=== PATIENT | female | born 1995 | race Caucasian/White ===

== ENCOUNTER 2018-11-14 05:45 | Inpatient (IN) | payer OTHER ==
[2018-11-14] VITALS (60 sets, daily range): BP systolic 99–138; BP diastolic 54–80; PULSE 71–120; TEMP 97.8–987
[~2018-11-14] VITALS: Ht 160 cm; Wt 94.1 kg
--- NOTE | 2018-11-14 06:00 | NUR ---
Pt arrived on the unit ambulatory escorted by her and with complaints of SROM with clear fluid at 0400. Pt denies any contractions at this time and reports normal movement. Amnio-test positive. SVE by this RN . EFM and toco monitors applied. Vital signs WNL.
[2018-11-14] MEDS ORDERED: PRENATAL (06:12)
[2018-11-14] MEDS ORDERED: DIABETA 2.5MG2.5 MG PO (06:13)
[2018-11-14] MEDS ORDERED: NEXIUM 20MG20 MG (06:13)
--- NOTE | 2018-11-14 06:20 | NUR ---
Spoke with Dr. Tristan regarding pt's arrival. We reviewed SVE, SROM and FHR tracing. Labor admission orders received. Plan of care reviewed with pt and at the bedside.
--- NOTE | 2018-11-14 07:15 | NUR ---
0700 Report received, care assumed. Plan of care reviewed with patient and spouse. 0715 Pitocin started at 2mu per orders and protocol.
[2018-11-14 07:22] LABS: BASO # 0.1 (0.0-0.2); BASO % 0.6 % (0.0-2.0); EOS # 0.1 (0.0-0.7); GRAN # 5.4 (1.4-6.5); GRAN % 69.2 % (42.2-75.2); HEMATOCRIT 38.4 % (37.0-47.0); HEMOGLOBIN 13.1 g/dl (12.5-16.0); LYMPH # 1.6 (1.2-3.4); LYMPH % 20.7 % (20.0-51.0); MEAN CELL VOLUME 94 fl (80.0-100.0); MEAN CORPUSCULAR HEMOGLOBIN 32 pg (27.0-31.0); MEAN CORPUSCULAR HGB CONC 34 g/dl (33.0-37.0); MEAN PLATELET VOLUME 12.2 fl (7.4-10.4); MONO # 0.6 (0.1-0.6); MONO % 7.9 % (1.7-9.3); PLATELET COUNT 136 K/mm3 (130-400); RED BLOOD COUNT 4.09 M/mm3 (4.10-5.30); REDCELL DISTRIBUTION WIDTH-CV 14.5 % (11.5-14.5)
--- NOTE | 2018-11-14 08:15 | NUR ---
Dr. Andre on unit, reviews FHR tracing. To patient room, discusses plan of care with patient and spouse. No new orders.
--- NOTE | 2018-11-14 08:30 | NUR ---
Patient states that she is beginning to feel some mild contractions and would like to use the birthing ball. Patient assisted to birthing ball. FHR intermittently tracing while patient is on the ball, this nurse at bedside adjusting EFM as needed.
--- NOTE | 2018-11-14 12:30 | NUR ---
Dr. Andre on unit, reviews FHR tracing. To patient room, SVE /-[address] AROM of forebag. Dr. Andre discusses plan of care with patient and spouse. Pitocin increased to 22mu per orders.
--- NOTE | 2018-11-14 13:30 | NUR ---
Patient uncomfortable with contractions, breathing and moaning through them, requesting epidural. IVF bolus started. GENERATOR REBUILDER notified.
--- NOTE | 2018-11-14 13:55 | NUR ---
1346 FHR down to 100 bpm for 1 minute, then decreases to 60-70 bpm for 5 minutes. During this time patient turned to high left side, IVF wide open and O2 on at 10L per mask. Pitocin turned off. SVE /-2. FHR intermittenty tracing with EFM, scalp electrode placed by this nurse and then patient assisted to knee chest. 1353 FHR 110-120 bpm and gradually returns to baseline of [address] Andre called and updated on FHR deceleration and interventions.
--- NOTE | 2018-11-14 14:15 | NUR ---
1357 Patient assisted from knee chest position to sitting upright on the bed. 1358 MAAME Johnson to patient room to place epidural. 1402 FHR down to 110 bpm for 1 minute, then down to 60-70 bpm over 5 minutes. Patient remains sitting upright while epidural is being placed, IVF bolus continues and O2 remains on at 10L. 1408 Patient assisted to high right side and 0.25mg of terbulatine given per orders. 1409 FHR gradually increases to 90 bpm. Patient assisted to knee chest position. FHR gradually increases from 90 bpm to [address] Andre called and updated on deceleration and interventions. Blood pressure WNL.
--- NOTE | 2018-11-14 14:15 | NUR ---
FHR 16 bpm, moderate variability. Patient assisted from knee chest position to high right side.
--- NOTE | 2018-11-14 14:30 | NUR ---
1427 BP: 85/50. 1429 10mg of ephedrine given per orders. 1431 BP 111/54.
--- NOTE | 2018-11-14 15:48 | NUR ---
FHR down to 90 bpm over 2 minutes with a gradual return to baseline of 150 bpm. SVE 6/80/-2. Patient positioned to right side with peanut ball between legs.
--- NOTE | 2018-11-14 17:30 | NUR ---
1725 FHR down to 70 bpm for 2 minutes, SVE 8/90/0, with scalp stimulation FHR increases to 150 bpm for 50 seconds, and then decreases again to 60-70 bpm for 5 minutes. Patient turned from high right side to high left side and then to knee chest position. O2 applied at 10L per mask. 1732 FHR gradually increases to 120 bpm and reaches baseline of [address] Andre called and updated on deceleration and interventions.
--- NOTE | 2018-11-14 17:45 | NUR ---
Patient assisted from knee chest to high left side.
--- NOTE | 2018-11-14 18:15 | NUR ---
Dr. Andre on unit, reviews FHR tracing. To patient room, SVE /+1. Plan of care reviewed. Patient positioned to right side with peanut ball between legs.
--- NOTE | 2018-11-14 19:00 | NUR ---
Dr Andre continues at L&D desk.
--- NOTE | 2018-11-14 19:05 | NUR ---
SVE by Dr Andre, ant rim/?OP. Dr Andre discusses plan of care with pt: possible OP position, longer labor, longer pushing, will start low dose Pitocin. Pt verbalizes understanding and consents. Pitocin gtt restarted at 2mu/pump
--- NOTE | 2018-11-14 20:00 | NUR ---
Dr Andre continues @ L&D desk.
--- NOTE | 2018-11-14 20:15 | NUR ---
SVE by this RN, 9+ with non-reducible rim on R ant. pt turned L wedge.
--- NOTE | 2018-11-14 20:45 | NUR ---
Dr Andre into room, bedside sono confirms straight OP. SVE by Dr Andre. 2100 pushing instructions given, Dr Andre continues in room. Pt set up, prepped for delivery.
--- NOTE | 2018-11-14 21:19 | NUR ---
of Male infant by Dr. Andre.
--- NOTE | 2018-11-14 21:26 | NUR ---
placenta delivers spont and intact with 3 vessell cord. Pitocin gtt to bolus rate.
--- NOTE | 2018-11-14 21:30 | NUR ---
Perineal inspection complete, pericare performed, ice pack to perineum, bed back together.
--- NOTE | 2018-11-14 22:30 | NUR ---
IV to INT, epidural cath dc'd, up to bathroom with steady gait. Voids good amount performs own pericare. Pt puts on own clothes. Ambulates to room with steady gait.
[2018-11-15 04:45] VITALS: BP 117/66; PULSE 89; TEMP 98
[2018-11-15 06:39] LABS: HEMOGLOBIN 11.8 g/dl (12.5-16.0)
[2018-11-15 08:35] VITALS: BP 108/72; PULSE 85; TEMP 98.3
[2018-11-15 16:00] VITALS: BP 118/80; PULSE 90; TEMP 98.4
--- NOTE | 2018-11-15 18:53 | NUR ---
0700 MOTHER HAD FED BABY ONLY 5 CC AND BROUGHT BABY TO [facility] WIDE AWAKE. THIS NURSE ASKED HER TO TRY TO FEED AGAIN AND GAVE HER SOME TIPS TO IMPROVE THE FDG. SHE SEEMED ANXIOUS TO GO OUTSIDE AND SAID SHE WAS MEETING HER OUTSIDE. NURSE TOLD HER HE COULD COME TO HER ROOM WHILE SHE FED THE BABY-SHE WAS NOT HAPPY ABOUT THIS AND WENT TO HER ROOM IN A SCHAFFER. SHE DID GET THE BABY TO TAKE 20 CC TOTAL.
--- NOTE | 2018-11-15 18:57 | NUR ---
1600 PT HAS BEEN OFF THE FLOOR AT LEAST 5 TIMES TODAY.
--- NOTE | 2018-11-15 18:58 | NUR ---
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 THIS NURSE REMINDED HER THAT TO GET BRST-FDG ESTABLISHED SHE NEEDED TO BE HERE TO PUT BABY TO THE BRST & USE THE PUMP WE SET UP FOR HER TODAY.SHE SEEMED ANNOYED AT NURSES SUGGESTIONS. 1730 PT TOLD NURSE SHE HAD CHANGED HER MIND AND DIDNT WANT TO BE AWAY FROM THE BABY AND WOULD BE STAYING.
[2018-11-15 21:30] VITALS: BP 113/69; PULSE 75; TEMP 97.6
[2018-11-16 07:22] VITALS: BP 119/87; PULSE 73; TEMP 98.4
[2018-11-16] MEDS ORDERED: IBU600 MG PO (08:38)
--- NOTE | 2018-11-16 10:30 | NUR ---
Initial visit; Parents thanked Dance Historian for offering congratulations and God's blessings for the of their son. Dance Historian thanked family for choosing [facility].
== END 2018-11-16 10:15 | disposition home or self-care (01) | DRG 807 ==
LOC: LDR 05:45 → LDRO 05:45 → OB 06:47 → LDR 06:47 → OB 21:19
PROVIDERS: Obstetrics & Gynecology; ADMIT Obstetrics & Gynecology
PROC: 10E0XZZ Delivery of Products of Conception, External Approach (ICD-10-PCS; principal; 2018-11-14)
PROC: 3E033VJ Introduction of Other Hormone into Peripheral Vein, Percutaneous Approach (ICD-10-PCS; 2018-11-14)
DX: O42.92 Full-term premature rupture of membranes, unspecified as to length of time between rupture and onset of labor (principal); Z37.0 Single live birth; O99.820 Streptococcus B carrier state complicating pregnancy; O99.213 Obesity complicating pregnancy, third trimester; O24.425 Gestational diabetes mellitus in childbirth, controlled by oral hypoglycemic drugs; O99.344 Other mental disorders complicating childbirth; F31.9 Bipolar disorder, unspecified; O69.1XX0 Labor and delivery complicated by cord around neck, with compression, not applicable or unspecified; O99.333 Smoking (tobacco) complicating pregnancy, third trimester; Z3A.38 38 weeks gestation of pregnancy
CPT/HCPCS: J2540; J2590; J2795; J3105; J7030

== ENCOUNTER 2022-01-01 10:41 | Emergency (ER) | payer MEDICAID ==
[~2022-01-01] VITALS: Ht 162.6 cm; Wt 80.0 kg
[~2022-01-01 10:41] MED LIST changes: -CRESTOR20 MG PO
[2022-01-01 10:49] VITALS: BP 134/92; PULSE 86; TEMP 98.5
[2022-01-01] MEDS ORDERED: CRESTOR20 MG PO (11:40)
== END 2022-01-01 12:28 | disposition home or self-care (01) ==
LOC: COL.ER 10:41
DX: M25.512 Pain in left shoulder (principal); F17.210 Nicotine dependence, cigarettes, uncomplicated; Z28.310 Unvaccinated for COVID-19

== ENCOUNTER → 2022-01-01 | Outpatient (CLI) | payer MEDICAID ==
[~2022-01-01] MED LIST: CRESTOR20 MG PO; DIABETA 2.5MG2.5 MG PO; IBU600 MG PO; NEXIUM 20MG20 MG; PRENATAL
== END ==
LOC: MC.RAD 09:21
DX: N64.52 Nipple discharge (principal)